=== PATIENT | male | born 1985 | race African-American/Black ===

== ENCOUNTER 2016-12-02 20:25 | Emergency (ER) | payer SELFPAY ==
[2016-12-02] MEDS ORDERED: OXYCODONE-ACETAMINOPHEN 5-325 MG TABLET PO ONE (23:20)
[2016-12-02] MEDS ORDERED: CLINDAMYCIN HCL 150 MG CAPSULE PO ONE (23:21)
--- NOTE | 2016-12-02 23:25 | ER Document Report ---
ED Oral Problem - General Chief Complaint: Toothache Stated Complaint: TOOTH PAIN Time seen by provider: 23:21 Mode of Arrival: Ambulatory Information source: Patient TRAVEL OUTSIDE OF THE [place] IN LAST 30 DAYS: No - HPI Patient complains to provider of: Toothache Onset: Last week Onset: Gradual Quality of pain: Achy Severity: Moderate Pain Level: 4 Associated symptoms: None Worsened by: Cold Relieved by: Nothing Similar symptoms previously: Yes Recently seen / treated by doctor/dentist: No Notes: Patient is a 30-year-old male who presents to the emergency room complaining of dental pain that's been worsening over the past week, he denies any fevers, no injuries, however he does report poor dentition overall, and he has not seen a dentist in quite some time due to finances and lack of dental - Related Data Allergies/Adverse Reactions: Penicillins Allergy (Verified 12/02/16 20:59) Past Medical History - General Information source: Patient - Social History Smoking Status: Current Every Day Smoker Family History: Reviewed & Not Pertinent Patient has suicidal ideation: No Patient has homicidal ideation: No Renal/ Medical History: Denies: Hx Peritoneal Dialysis - Immunizations Hx Diphtheria, Pertussis, Tetanus Vaccination: Yes Review of Systems - Review of Systems Constitutional: No symptoms reported EENT: See HPI Cardiovascular: No symptoms reported Respiratory: No symptoms reported Gastrointestinal: No symptoms reported Genitourinary: No symptoms reported Male Genitourinary: No symptoms reported Musculoskeletal: No symptoms reported Skin: No symptoms reported Hematologic/Lymphatic: No symptoms reported Neurological/Psychological: No symptoms reported -: Yes All other systems reviewed and negative Physical Exam - Vital signs Vitals: Temp Pulse Resp BP Pulse Ox 98.3 F 95 22 H 131/94 H 100 12/02/16 21:00 12/02/16 21:00 12/02/16 21:00 12/02/16 21:00 12/02/16 21:00 - Notes Notes: - General General appearance: Appears well, Alert In distress: None - HEENT Head: Normocephalic, Atraumatic Eyes: Normal Conjunctiva: Normal Extraocular movements intact: Yes Eyelashes: Normal Pupils: PERRL - Respiratory Respiratory status: No respiratory distress - Cardiovascular Rhythm: Regular - Abdominal Inspection: Normal - Back Back: Normal - Extremities General upper extremity: Normal inspection General lower extremity: Normal inspection - Neurological Neuro grossly intact: Yes Orientation: AAOx4 [place] Coma Scale Eye Opening: Spontaneous Domenico Coma Scale Verbal: Oriented Domenico Coma Scale Motor: Obeys Commands Domenico Coma Scale Total: 15 - Psychological Associated symptoms: Normal affect, Normal mood - Skin Skin Temperature: Warm Skin Moisture: Dry Skin Color: Normal - HEENT Mouth/Lips: Caries Mucous membranes: Moist Teeth diagram: 1 - Erythema with mild swelling or gingival, diffuse dental caries Course - Re-evaluation Re-evalutation: 12/02/16 23:23 Patient with overall poor dentition, diffuse dental caries, has not seen a dentist in quite some time secondary to finances and lack of insurance, stating that his pain is worsening over the past week, patient was started on antibiotics and provided with a small amount of pain medication as well as information for follow-up with a dental clinic in the area, patient advised to follow-up with a dentist within the next week or return if symptoms worsen, patient acknowledges understanding and agreement with this plan - Vital Signs Vital signs: Temp Pulse Resp BP Pulse Ox 98.3 F 95 22 H 131/94 H 100 12/02/16 21:00 12/02/16 21:00 12/02/16 21:00 12/02/16 21:00 12/02/16 21:00 Discharge - Discharge Clinical Impression: Dental caries Instructions: [facility], Oral Narcotic Medication ([facility]), Toothache ([facility]), Clindamycin ([facility]) Additional Instructions: Follow up with a dentist in one to 2 days. Return to the emergency room immediately if symptoms worsen or any additional concerns. Prescriptions: Clindamycin HCl [Cleocin 150 mg Capsule] 450 mg PO Q6 10 Days Oxycodone HCl/Acetaminophen [Percocet 5-325 mg Tablet] 1 - 2 tab PO ASDIR PRN # 15 tablet PRN Reason:
[2016-12-02 23:44] VITALS: BP 143/92
== END 2016-12-02 23:46 | disposition home or self-care (01) ==
LOC: ER 20:25
DX: K02.9 Dental caries, unspecified (principal); K08.89 Other specified disorders of teeth and supporting structures; F17.200 Nicotine dependence, unspecified, uncomplicated
CPT/HCPCS: 99282

== ENCOUNTER 2017-02-11 17:32 | Emergency (ER) | payer SELFPAY ==
--- NOTE | 2017-02-11 18:37 | ER Document Report ---
HPI - HPI Patient complains to provider of: dental pain Pain Level: 5 Context: 31 yo male c/o dental pain x 1 week. pt reports poor dentition "all my teeth are rotten" but pain is getting worse. has no dentist, uninsured. Associated Symptoms: None Exacerbated by: Food Relieved by: Denies Similar symptoms previously: Yes Recently seen / treated by doctor: No - ROS Systems Reviewed and Negative: Yes All other systems reviewed and negative - CARDIOVASCULAR Cardiovascular: DENIES: Chest pain - DERM Skin Color: Normal Past Medical History - General Information source: Patient - Social History Smoking Status: Current Every Day Smoker Chew tobacco use (# tins/day): No Frequency of alcohol use: Occasional Drug Abuse: None Lives with: Family Family History: Reviewed & Not Pertinent Patient has suicidal ideation: No Patient has homicidal ideation: No Renal/ Medical History: Denies: Hx Peritoneal Dialysis Surgical Hx: Negative - Immunizations Hx Diphtheria, Pertussis, Tetanus Vaccination: Yes Vertical Provider Document - CONSTITUTIONAL Agree With Documented VS: Yes Exam Limitations: No Limitations - INFECTION CONTROL TRAVEL OUTSIDE OF THE [place] IN LAST 30 DAYS: No - HEENT HEENT: Atraumatic Mouth Diagram: 1 - pain 2 - pain Notes: overall poor dentition, diffuse dental caries, gingivitis - RESPIRATORY O2 Sat by Pulse Oximetry: 98 Course - Re-evaluation Re-evalutation: 02/11/17 18:33 Patient with overall poor dentition, diffuse dental caries, has not seen a dentist in quite some time secondary to finances and lack of insurance, stating that his pain is worsening over the past week, patient was started on antibiotics and provided with a small amount of pain medication as well as information for follow-up with a [facility]. patient advised to follow-up with a dentist within the next week or return if symptoms worsen, patient acknowledges understanding and agreement with this plan 02/11/17 18:45 pt with asymptomatic HTN. pt claims "it's stress and pain". denies headache, dizziness, chest pain, shortness of breath or any other s/s hypertensive crisis. neurologically intact. discussed elevated BP with patient. advised him to keep blood pressure diary and f/u with clinic for further evaluation - Vital Signs Vital signs: Temp Pulse Resp BP Pulse Ox 98.3 F 110 H 20 140/101 H 98 02/11/17 17:47 02/11/17 17:47 02/11/17 17:47 02/11/17 17:47 02/11/17 17:47 Discharge - Discharge Clinical Impression: Pain, dental Condition: Stable Disposition: HOME, SELF-CARE Instructions: [facility], Clindamycin ([facility]), Oral Narcotic Medication ([facility]) Additional Instructions: Take antibiotic as prescribed pain med as needed follow up with dental clinic for further evaluation and treatment Prescriptions: Clindamycin HCl 300 mg PO Q6H #40 capsule Clindamycin HCl [Cleocin HCl] 150 mg PO TID #30 capsule Oxycodone HCl/Acetaminophen [Percocet 5-325 mg Tablet] 1 - 2 tab PO ASDIR PRN # 15 tablet PRN Reason: Forms: Elevated Blood Pressure
[2017-02-11 18:53] VITALS: BP 130/96
== END 2017-02-11 18:51 | disposition home or self-care (01) ==
LOC: ER 17:32
DX: K02.9 Dental caries, unspecified (principal); K05.10 Chronic gingivitis, plaque induced; K08.89 Other specified disorders of teeth and supporting structures; I10 Essential (primary) hypertension; F17.200 Nicotine dependence, unspecified, uncomplicated
CPT/HCPCS: 99282

== ENCOUNTER 2018-04-23 14:19 | Emergency (ER) | payer SELFPAY ==
[2018-04-23 15:03] VITALS: BP 130/87
[2018-04-23] MEDS ORDERED: ACETAMINOPHEN 325 MG TABLET PO ONE (15:08)
[2018-04-23] MEDS ORDERED: CLINDAMYCIN HCL 150 MG CAPSULE PO ONE (15:08)
--- NOTE | 2018-04-23 15:14 | ER Document Report ---
ED Oral Problem - General Chief Complaint: Mouth Problem Stated Complaint: TEETH PAIN, GUM SWELLING Time Seen by Provider: 04/23/18 14:57 TRAVEL OUTSIDE OF THE [place] IN LAST 30 DAYS: No - Related Data Allergies/Adverse Reactions: Penicillins Allergy (Verified 04/23/18 14:27) Past Medical History - Social History Smoking Status: Current Every Day Smoker Family History: Reviewed & Not Pertinent Patient has suicidal ideation: No Patient has homicidal ideation: No Renal/ Medical History: Denies: Hx Peritoneal Dialysis - Immunizations Hx Diphtheria, Pertussis, Tetanus Vaccination: Yes Physical Exam - Vital signs Vitals: Temp Pulse Resp BP Pulse Ox 99.1 F 108 H 18 130/87 H 99 04/23/18 15:02 04/23/18 15:02 04/23/18 15:02 04/23/18 15:02 04/23/18 15:02 Interpretation: Normal - General General appearance: Appears well, Alert - HEENT Head: Normocephalic, Atraumatic Eyes: Normal Pupils: PERRL Ears: Normal External canal: Normal Tympanic membrane: Normal Sinus: Normal Nasal: Normal Mouth/Lips: Caries Mucous membranes: Normal Teeth diagram: 1 - Multiple caries throughout his mouth. Multiple teeth broken off at the gumline. Minimal swelling to the gums. Does have extensive gingivitis. Patient was treated with antibiotics discharged home with instructions for Tylenol Motrin for his dental pain. Pharynx: Normal Neck: Normal - Respiratory Respiratory status: No respiratory distress Chest status: Nontender Breath sounds: Normal Chest palpation: Normal - Cardiovascular Rhythm: Regular Heart sounds: Normal auscultation Murmur: No - Abdominal Inspection: Normal Distension: No distension Bowel sounds: Normal Tenderness: Nontender Organomegaly: No organomegaly - Back Back: Normal, Nontender - Extremities General upper extremity: Normal inspection, Nontender, Normal color, Normal ROM , Normal temperature General lower extremity: Normal inspection, Nontender, Normal color, Normal ROM , Normal temperature, Normal weight bearing. No: Kim's sign - Neurological Neuro grossly intact: Yes Cognition: Normal Orientation: AAOx4 Domenico Coma Scale Eye Opening: Spontaneous Domenico Coma Scale Verbal: Oriented Domenico Coma Scale Motor: Obeys Commands Domenico Coma Scale Total: 15 Speech: Normal Motor strength normal: LUE, RUE, LLE, RLE Sensory: Normal - Psychological Associated symptoms: Normal affect, Normal mood - Skin Skin Temperature: Warm Skin Moisture: Dry Skin Color: Normal Course - Re-evaluation Re-evalutation: 04/24/18 02:16 Presentation is most consistent with likely an infected tooth. Airway is patent. Vitals within normal limits. Patient is able swallow without any difficulty. There is no significant facial swelling. No evidence of Tyrel angina, apical abscess, or airway obstruction. Patient will be started on antibiotics. I've instructed to follow-up with dentistry as earliest ability for definitive management. At this time will discharge with return precautions and follow-up recommendations. Verbal discharge instructions given a the bedside and opportunity for questions given. Medication warnings reviewed. Patient is in agreement with this plan and has verbalized understanding of return precautions and the need for primary care follow-up in the next 24-72 hours. - Vital Signs Vital signs: Temp Pulse Resp BP Pulse Ox 99.1 F 108 H 18 130/87 H 99 04/23/18 15:02 04/23/18 15:02 04/23/18 15:02 04/23/18 15:02 04/23/18 15:02 Discharge - Discharge Clinical Impression: Pain due to dental caries Condition: Stable Disposition: HOME, SELF-CARE Additional Instructions: TOOTHACHE: Your pain is due to dental decay. The tooth must be repaired in order for you to feel better. You will, therefore, be referred to a dentist. We do not have dentists on the staff at [facility]. Severe swelling or drainage around a tooth usually means a dental abscess. This also requires evaluation and treatment by the dentist, but antibiotics may be prescribed while awaiting dental treatment. You should be rechecked immediately if you develop major swelling of the face, increasing pain, a lump in the jaw or gums, headache, difficulty swallowing, or fever. CLINDAMYCIN: You have been given a prescription for the antibiotic clindamycin. It is often prescribed for infections in the mouth, such as dental infections or abscesses, and for skin infections due to MRSA. It's important that you take all the medication, unless instructed otherwise by your physician. Failure to complete the entire course can result in relapse of your condition. Common side effects of antibiotics include nausea, intestinal cramping, or diarrhea. Women may develop vaginal yeast infections, and babies can get yeast (thrush) in the mouth following the use of antibiotics. Contact your physician if you develop significant side effects from this medication. Allergy to this antibiotic can result in hives, wheezing, faintness, or itching. If symptoms of allergy occur, stop the medication and call the doctor. FOLLOW-UP CARE: You have been referred for follow-up care to the dentists listed below. Call the dentists office for an appointment as you were instructed or within the next two days. If you experience worsening or a significant change in your symptoms, notify the physician immediately or return to the Emergency Department at any time for re-evaluation. [facility] [address] [place], [place] [facility] [address] [place] [address] [facility] [place] [address] [facility] [address] [facility] [address] [email or web address] [address] [place] [address] Sunday- 8:00am to 5:00 pm Will see patients from other [facility]. Charges based on income and family size and accepts Medicare, Medicaid, and Insurances Will pull molars [facility] [id number] Hours of Operation 8:00 am - 4:30 pm weekdays The following dental offices accept Medicaid: [facility] [address] Dr. Yu Dr. Vasquez Dr. Webb Silvestre Lopez Luts[place], and [place] oral [facility] Dr. Ordaz ([place]) Dr. Gipson ([place]) [facility] Drs. Jarquin and Jean ([place]) Dr. Cervantes ([place]) [facility] Dr. Huber ([place]) Drs. Hutchinson and ([place]) Medicaid Care Line Prescriptions: Clindamycin HCl 300 mg PO Q6 #28 capsule Forms: Elevated Blood Pressure, Smoking Cessation Education, Return to Work
== END 2018-04-23 15:19 | disposition home or self-care (01) ==
LOC: ER 14:19
DX: K02.9 Dental caries, unspecified (principal); K05.10 Chronic gingivitis, plaque induced; S02.5XXA Fracture of tooth (traumatic), initial encounter for closed fracture; X58.XXXA Exposure to other specified factors, initial encounter; F17.200 Nicotine dependence, unspecified, uncomplicated
CPT/HCPCS: 99282

== ENCOUNTER 2020-05-20 18:11 | Emergency (ER) | payer SELFPAY ==
[2020-05-20 18:43] VITALS: BP 134/89
--- NOTE | 2020-05-20 19:55 | ER Document Report ---
ED Medical Screen (RME) - General Chief Complaint: Shortness Of Breath Stated Complaint: COUGH, DIFFICULTY BREATHING, CHILLS Time Seen by Provider: 05/20/20 19:51 TRAVEL OUTSIDE OF THE [place] IN LAST 30 DAYS: No - HPI Notes: 05/20/20 19:53 34-year-old male to the emergency department with complaints of cough and shortness of breath for approximately 1 week. States it hurts when he coughs and stress. Denies any nausea, vomiting, diarrhea, abdominal pain, sore throat, loss of taste. He admits that he has had some subjective fevers and chills. he is a smoker. He states that some of his friends have had similar symptoms. He states that he does not think that he has had any contact with anyone with coronavirus. The patient was evaluated during the global COVID 19 pandemic, and that diagnosis was suspected/considered upon their initial presentation. Their evaluation, treatment, and testing was consistent with current guidelines for patients who present with complaints or symptoms that may be related to COVID-19. I performed a brief medical screening exam on the patient determined that the patient needs further evaluation and management by main side provider. I have placed initial orders to help expedite care. - Related Data Allergies/Adverse Reactions: Penicillins Allergy (Verified 05/20/20 19:47) Past Medical History - Social History Frequency of alcohol use: None Drug Abuse: None Renal/ Medical History: Denies: Hx Peritoneal Dialysis - Immunizations Hx Diphtheria, Pertussis, Tetanus Vaccination: Yes Physical Exam - Vital signs Vitals: Temp Pulse Resp BP Pulse Ox 99.4 F 143 H 22 H 134/89 H 92 05/20/20 18:39 05/20/20 18:39 05/20/20 18:39 05/20/20 18:39 05/20/20 18:39 Course - Vital Signs Vital signs: Temp Pulse Resp BP Pulse Ox 99.4 F 143 H 22 H 134/89 H 92 05/20/20 18:39 05/20/20 18:39 05/20/20 18:39 05/20/20 18:39 05/20/20 18:39
--- NOTE | 2020-05-20 20:53 | RADIOLOGY REPORT (SQ) ---
EXAM DESCRIPTION: [facility]: XR CHEST 1 VIEW CLINICAL HISTORY: 34 years Male; cough, SOB, PUI; COMPARISON: 09/19/2014 FINDINGS: Lungs: There is ill-defined right lower lobe infiltrate. No pneumothorax or pleural effusion. Questionable retrocardiac left lower lobe infiltrate. Mediastinum: Mediastinum is within normal limits for this positioning. Bones: Bony structures are unremarkable. IMPRESSION: 1. Right lower lobe pneumonia. 2. Possible mild left lower lobe infiltrate.
[2020-05-20 21:52] LABS: ALBUMIN 3.8 g/dL (3.5-5.0); ALKALINE PHOSPHATASE 144 U/L (38-126); ANION GAP 15 (5-19); ASPARTATE AMINO TRANSFERASE 79 U/L (17-59); BILIRUBIN,DIRECT 0.5 mg/dL (0.0-0.4); BILIRUBIN,TOTAL 0.8 mg/dL (0.2-1.3); BLOOD UREA NITROGEN 15 mg/dL (7-20); CALCIUM 8.5 mg/dL (8.4-10.2); CARBON DIOXIDE 24 mmol/L (22-30); CHLORIDE 91 mmol/L (98-107); GLUCOSE 139 mg/dL (75-110); POTASSIUM 3.3 mmol/L (3.6-5.0); TOTAL PROTEIN 7.6 g/dL (6.3-8.2)
--- NOTE | 2020-05-20 21:55 | EKG REPORT ---
SEVERITY:- ABNORMAL ECG - SINUS TACHYCARDIA LEFT VENTRICULAR HYPERTROPHY : Confirmed by: Leonardo Bacon 20-May-2020 21:54:38
[2020-05-20 21:57] LABS: HEMATOCRIT 31.8 % (37.9-51.0); HEMOGLOBIN 10.3 g/dL (13.5-17.0); MEAN CORPUSCULAR HGB CONC 32.4 g/dL (32.0-36.0); MEAN CORPUSCULAR VOLUME 77 fl (80-97); PLATELET COUNT 353 10^3/uL (150-450); RED BLOOD COUNT 4.12 10^6/uL (4.35-5.55); WHITE BLOOD COUNT 20.1 10^3/uL (4.0-10.5)
[2020-05-20 22:14] LABS: BAND NEUTROPHILS % (MANUAL) 3 % (3-5); BASOPHILS % (MANUAL) 0 % (0-2); EOSINOPHILS % (MANUAL) 0 % (0-6); LYMPHOCYTES % (MANUAL) 5 % (13-45); MONOCYTES % (MANUAL) 10 % (3-13); SEGMENTED NEUTROPHILS % (MAN) 82 % (42-78); TOTAL CELLS COUNTED 100
[2020-05-20 22:16] LABS: ANISOCYTOSIS 2+; HYPOCHROMASIA SLIGHT; POLYCHROMASIA SLIGHT; TEAR DROP CELLS SLIGHT
[2020-05-20 22:17] LABS: PLATELET CLUMPS PRESENT; PLATELET COMMENT ADEQUATE; PLATELET GIANT PRESENT
== END 2020-05-20 22:04 | disposition left against medical advice (07) ==
LOC: ER 18:11
DX: J18.9 Pneumonia, unspecified organism (principal); R05 Cough; R06.02 Shortness of breath; Z88.0 Allergy status to penicillin; Z20.828 Contact with and (suspected) exposure to other viral communicable diseases; Z53.20 Procedure and treatment not carried out because of patient's decision for unspecified reasons
CPT/HCPCS: 36415; 71045; 80053; 83605; 85025; 87040; 93005; 93010; 99281